=== PATIENT | female | born 1975 | race Caucasian/White ===

== ENCOUNTER 2016-12-24 20:03 | Emergency (ER) | payer SELFPAY ==
[2016-12-24] MEDS ORDERED: Ondansetron HCl/PF 4 MG/2 ML Vial ONE (20:45)
[2016-12-24 21:03] LABS: #Lymphocytes 1.1 thou/uL (1.20-3.40); #Monocytes 0.4 thou/uL (0.11-0.59); #Neutrophils 5.5 thou/uL (1.40-6.50); %Basophils 0.3 % (0.0-1.0); %Eosinophils 0.3 % (0.0-10.0); %Lymphocytes 15.7 % (21.0-51.0); %Monocytes 5.4 % (0.0-10.0); Hematocrit 38.1 % (36.0-47.0); Mean Platelet Volume 7.5 fL (7.4-10.4); Red Blood Cell (RBC) Count 3.81 mill/uL (4.20-5.40)
--- NOTE | 2016-12-24 21:12 | RAD ---
AP CHEST: Indication: Syncope. Comparison: 03-16-13 IMPRESSION: No acute cardiopulmonary abnormality. The examination does not appear appreciably changed from the c omparison dated 03-16-13. POS: [facility]
[2016-12-24 21:24] LABS: ALT (SGPT) 9 U/L (8-55); AST (SGOT) 14 U/L (5-34); Alkaline Phosphatase 76 U/L (40-150); Anion Gap 11 mmol/L (10-20); BUN (Urea Nitrogen) 12 mg/dL (7.0-18.7); Bilirubin, Total 0.2 mg/dL (0.2-1.2); CK (CPK) 79 U/L (29-168); Calc. Creatinine Clearance 0 mL/min (70-130); Calcium 8.7 mg/dL (7.8-10.44); Carbon Dioxide 27 mmol/L (22-29); Chloride 100 mmol/L (98-107); Estimated GFR-MDRD Greater than 90; Globulin 3.2 g/dL (2.4-3.5)
[2016-12-24 21:28] LABS: Troponin I Less than 0.010 ng/mL (< 0.028)
[2016-12-24 22:13] LABS: Bilirubin Negative (Negative); Blood, Urine Negative (Negative); Glucose, Urine (Dipstick) Negative (Negative); Ketone, Urine Negative (Negative); Nitrite Negative (Negative); Protein, Urine (Dipstick) Negative (Neg-Trace)
[2016-12-24 22:14] LABS: Bacteria/HPF None Seen HPF (None Seen); Hyaline Casts/LPF 0-3 HYALINE CAST LPF (0-3 Hyaline); RBC/HPF 0-3 HPF (0-3); Squamous Epithelial 0-3 HPF (0-3)
--- NOTE | 2016-12-24 22:32 | CT ---
CT BRAIN WITHOUT CONTRAST: Indication: 41-year-old male with history of seizures after smoking K2 today. The patient had an epi sode of shaking and was assisted to the ground and responsive to painful stimuli only. The patient d oes not recall the event. FINDINGS/IMPRESSION: No acute infarct, hemorrhage, or hydrocephalus is present. The septum pellucidum and third ventricle s are midline. The skull and extracranial soft tissues are normal appearing. POS: [facility]
--- NOTE | 2016-12-29 18:13 | EKG ---
Test Reason : Blood Pressure : / mmHG Vent. Rate : 072 BPM Atrial Rate : 072 BPM P-R Int : 160 ms QRS Dur : 084 ms QT Int : 418 ms P-R-T Axes : 061 053 037 degrees QTc Int : 457 ms Normal sinus rhythm Normal ECG Confirmed by CK BANERJEE M.D. ([id number]), videotape editor SAV WELLS ([id number] on 12/29/2016 6:13:22 PM Referred By: Confirmed By:CK BANERJEE M.D.
== END 2016-12-24 23:30 | disposition home or self-care (01) ==
LOC: ERS 20:03
DX: R55 Syncope and collapse (principal); F12.10 Cannabis abuse, uncomplicated; M32.9 Systemic lupus erythematosus, unspecified; I10 Essential (primary) hypertension; F31.9 Bipolar disorder, unspecified; F41.9 Anxiety disorder, unspecified; F17.210 Nicotine dependence, cigarettes, uncomplicated
CPT/HCPCS: 36415; 70450; 71010; 80053; 81003; 81015; 81025; 82553; 84484; 85025; 93005; 96361; 96374; J2405

== ENCOUNTER 2017-05-01 11:14 | Emergency (ER) | payer SELFPAY ==
[2017-05-01] MEDS ORDERED: ISOVUE-370 76%-LOCM 1 ML ONE (11:31)
[2017-05-01 11:58] LABS: Bilirubin Negative (Negative); Blood, Urine Negative (Negative); Clarity CLEAR (Clear); Glucose, Urine (Dipstick) Negative (Negative); Leukocyte Negative (Negative); Nitrite Negative (Negative); Protein, Urine (Dipstick) Negative (Neg-Trace); Specific Gravity, Urine 1.016 (1.002-1.036)
[2017-05-01] MEDS ORDERED: Morphine 2 MG/ML SYRINGE ONE (13:21)
[2017-05-01] MEDS ORDERED: Ondansetron HCl/PF 4 MG/2 ML Vial ONE (13:21)
[2017-05-01 13:30] LABS: #Lymphocytes 1.4 thou/uL (1.20-3.40); #Monocytes 0.4 thou/uL (0.11-0.59); #Neutrophils 4.7 thou/uL (1.40-6.50); %Basophils 0.2 % (0.0-1.0); %Eosinophils 0.2 % (0.0-10.0); %Lymphocytes 22.2 % (21.0-51.0); %Monocytes 5.7 % (0.0-10.0); %Neutrophils 71.8 % (42.0-75.0); Hemoglobin 15.4 g/dL (12.0-16.0); Mean Corpuscular HGB CONC 34.4 g/dL (32.0-36.0); Mean Corpuscular Hemoglobin 34.5 pg (27.0-31.0); Mean Platelet Volume 8.4 fL (7.4-10.4); Platelet Count 214 thou/uL (130-400); RBC Distribution Width 11.3 % (11.5-14.5); Red Blood Cell (RBC) Count 4.47 mill/uL (4.20-5.40); White Blood Cell (WBC) Count 6.5 thou/uL (4.8-10.8)
[2017-05-01 13:40] LABS: INR-International Normal Ratio 0.9; Prothrombin Time 12.7 SEC (12.0-14.7)
[2017-05-01 13:41] LABS: BHCG - Serum Negative (NEGATIVE); Pregs Control Background? CLEAR/WHITE (CLR/WHITE); Pregs Control Bar Appear? YES (CONTROL BAR)
[2017-05-01 13:56] LABS: ALT (SGPT) 9 U/L (8-55); AST (SGOT) 13 U/L (5-34); Albumin 4.4 g/dL (3.5-5.0); Alkaline Phosphatase 81 U/L (40-150); Anion Gap 12 mmol/L (10-20); BUN (Urea Nitrogen) 10 mg/dL (7.0-18.7); Bilirubin, Total 0.6 mg/dL (0.2-1.2); Calc. Creatinine Clearance 0 mL/min (70-130); Calcium 9.3 mg/dL (7.8-10.44); Carbon Dioxide 25 mmol/L (22-29); Chloride 102 mmol/L (98-107); Estimated GFR-MDRD 87; Globulin 3.2 g/dL (2.4-3.5); Glucose 109 mg/dL (70-105); Lipase 17 U/L (8-78); Potassium 3.8 mmol/L (3.5-5.1); Protein, Total 7.6 g/dL (6.0-8.3); Sodium 135 mmol/L (136-145)
--- NOTE | 2017-05-01 14:12 | RAD ---
ONE VIEW CHEST: HISTORY: Right-sided pain. Cough. Congestion. COMPARISON: 12/24/2016 FINDINGS: Portable upright chest demonstrates a normal cardiac silhouette. The pulmonary vessels and hilum are normal. No masses or consolidation. No pneumothorax or osseous abnormalities. IMPRESSION: No acute cardiopulmonary process. POS: [facility]
--- NOTE | 2017-05-01 14:30 | ULT ---
GALLBLADDER ULTRASOUND: HISTORY: Abdominal pain. Right upper quadrant pain. COMPARISON: None. TECHNIQUE: Utilizing a multihertz transducer, sonographic imaging of the right upper quadrant was performed in t he longitudinal and transverse plane. FINDINGS: The head and proximal pancreatic body have a normal echotexture. The remainder of the pancreas is ob scured by bowel gas. Pancreatic duct measures 0.3 cm. Visualized IVC and aorta are unremarkable. Hepatic parenchyma has a normal echotexture. No hepatic masses or intrahepatic biliary dilatation. Contour of the hepatic margin is maintained. Right hepat ic lobe measures 18.9 cm. Main portal vein is patent. Appropriate directional flow. Common bile duct diameter is 0.6 cm. No sonographic evidence of cholelithiasis, gallbladder wall thickening, or pericholecystic fluid. Ne gative Brown's sign. Right Kidney: No hydronephrosis. 4.5 x 5.0 x 10.6 cm. IMPRESSION: 1. No sonographic evidence of cholelithiasis or cholecystitis. Note, the patient is not NPO. 2. Common bile duct diameter at the upper limits of normal. If there is concern for choledocholithi asis, consider MRCP or ERCP. POS: [facility]
--- NOTE | 2017-05-01 15:40 | CT ---
CT ABDOMEN AND PELVIS WITH IV CONTRAST: HISTORY: Right-sided abdominal pain. FINDINGS: The lung bases are unremarkable. No free air or lymphadenopathy is seen. There is a small amount of free fluid in the pelvis. No calcified gallstones are identified. The liver, spleen, pancreas, adr enal glands, and kidneys are normal. The patient is post hysterectomy. An abnormally dilated fluid-filled appendix is not seen. There is no pericecal inflammatory change. There is a 17 mm cyst in the right adnexa. IMPRESSION: 1. A 17 mm right adnexal cyst, likely ovarian. 2. A small amount of free fluid in the pelvis. POS: [facility]
[2017-05-01 16:25] LABS: Amphetamine Not Detected (NotDetected); Barbiturates Screen Not Detected (NotDetected); Benzodiazepine Screen Not Detected (NotDetected); Cocaine Metabolite Screen Not Detected (NotDetected); Medtox Reader # READER 4; Methadone Not Detected (NotDetected); Methamphetamine Not Detected (NotDetected); Opiate Screen Not Detected (NotDetected); Oxycodone Screen Not Detected (NotDetected); Phencyclidine (PCP) Not Detected (NotDetected); THC/Cannabinoid Screen Detected (NotDetected); Tricyclic Screen Not Detected (NotDetected)
[2017-05-01 16:26] LABS: Medtox Control Line Valid? VALID (VALID)
[2017-05-01] MEDS ORDERED: Famotidine/PF 20 mg/2ml Vial ONE (16:46)
== END 2017-05-01 18:25 | disposition home or self-care (01) ==
LOC: ERS 11:14
DX: N83.201 Unspecified ovarian cyst, right side (principal); R10.11 Right upper quadrant pain; I10 Essential (primary) hypertension; F31.9 Bipolar disorder, unspecified; F41.9 Anxiety disorder, unspecified; F17.210 Nicotine dependence, cigarettes, uncomplicated; Z71.6 Tobacco abuse counseling
CPT/HCPCS: 36415; 71045; 74177; 76705; 80053; 80306; 81003; 83605; 83690; 84703; 85025; 85610; 96361; 96374; 96375; 99406; J1170; J2270; J2405; S0028

== ENCOUNTER 2017-08-05 17:59 | Emergency (ER) | payer SELFPAY ==
[2017-08-05 18:34] LABS: Bilirubin Negative (Negative); Blood, Urine Negative (Negative); Clarity CLEAR (Clear); Glucose, Urine (Dipstick) Negative (Negative); Leukocyte Negative (Negative); Nitrite Negative (Negative); Protein, Urine (Dipstick) Negative (Neg-Trace); Specific Gravity, Urine 1.023 (1.002-1.036); pH, Urine 5.5 (5.0-9.0)
[2017-08-05 18:52] LABS: Amphetamine Not Detected (NotDetected); Barbiturates Screen Not Detected (NotDetected); Benzodiazepine Screen Not Detected (NotDetected); Cocaine Metabolite Screen Not Detected (NotDetected); Medtox Control Line Valid? VALID (VALID); Medtox Reader # READER 1; Methadone Not Detected (NotDetected); Methamphetamine Not Detected (NotDetected); Opiate Screen Not Detected (NotDetected); Oxycodone Screen Not Detected (NotDetected); Phencyclidine (PCP) Not Detected (NotDetected); THC/Cannabinoid Screen Detected (NotDetected); Tricyclic Screen Not Detected (NotDetected)
[2017-08-05 18:55] LABS: #Lymphocytes 1.6 thou/uL (1.20-3.40); #Monocytes 0.4 thou/uL (0.11-0.59); #Neutrophils 4.2 thou/uL (1.40-6.50); %Basophils 0.2 % (0.0-1.0); %Eosinophils 0.1 % (0.0-10.0); %Lymphocytes 25.8 % (21.0-51.0); %Monocytes 6.7 % (0.0-10.0); %Neutrophils 67.1 % (42.0-75.0); Hemoglobin 13.5 g/dL (12.0-16.0); Mean Corpuscular HGB CONC 35.6 g/dL (32.0-36.0); Mean Corpuscular Hemoglobin 34.3 pg (27.0-31.0); Mean Corpuscular Volume 96.4 fl (81.0-99.0); Platelet Count 184 thou/uL (130-400); RBC Distribution Width 10.7 % (11.5-14.5); Red Blood Cell (RBC) Count 3.94 mill/uL (4.20-5.40); White Blood Cell (WBC) Count 6.2 thou/uL (4.8-10.8)
[2017-08-05 19:05] LABS: PTT 31.6 SEC (22.9-36.1); Prothrombin Time 13.4 SEC (12.0-14.7)
[2017-08-05 19:14] LABS: ALT (SGPT) 8 U/L (8-55); AST (SGOT) 13 U/L (5-34); Alkaline Phosphatase 68 U/L (40-150); Anion Gap 12 mmol/L (10-20); BUN (Urea Nitrogen) 16 mg/dL (7.0-18.7); Bilirubin, Total 0.5 mg/dL (0.2-1.2); Calc. Creatinine Clearance 0 mL/min (70-130); Carbon Dioxide 26 mmol/L (22-29); Chloride 104 mmol/L (98-107); Estimated GFR-MDRD 81; Globulin 2.6 g/dL (2.4-3.5); Glucose 120 mg/dL (70-105); Potassium 3.6 mmol/L (3.5-5.1); Protein, Total 6.6 g/dL (6.0-8.3); Sodium 138 mmol/L (136-145)
== END 2017-08-05 20:06 | disposition home or self-care (01) ==
LOC: ERS 17:59
DX: R55 Syncope and collapse (principal); I10 Essential (primary) hypertension; F41.9 Anxiety disorder, unspecified; F31.9 Bipolar disorder, unspecified; F17.210 Nicotine dependence, cigarettes, uncomplicated; Z79.899 Other long term (current) drug therapy
CPT/HCPCS: 36415; 51701; 80053; 80306; 81003; 84146; 85025; 85610; 85730; 93005; A4353

== ENCOUNTER 2018-04-20 12:44 | Emergency (ER) | payer SELFPAY ==
[2018-04-20] MEDS ORDERED: Ketorolac Tromethamine 30 MG/ML VIAL ONE (13:51)
--- NOTE | 2018-04-20 15:27 | RAD ---
TWO VIEWS LEFT FOREARM: DATE: 04/20/2018. COMPARISON: None. HISTORY: Injury, trauma, fall, pain. FINDINGS: No displaced fracture or evidence of dislocation. IMPRESSION: No acute osseous abnormality. POS: [facility]
--- NOTE | 2018-04-20 15:28 | RAD ---
LEFT HAND 3 VIEWS: DATE: 04/20/2018. COMPARISON: None. HISTORY: Left-sided pain, fall, injury. FINDINGS: There is probable mild dorsal soft tissue swelling with no displaced fracture or evidence of dislocat ion. IMPRESSION: No acute fracture or evidence of dislocation. POS: [facility]
== END 2018-04-20 14:10 | disposition home or self-care (01) ==
LOC: ERS 12:44
DX: M25.532 Pain in left wrist (principal); F31.9 Bipolar disorder, unspecified; F41.9 Anxiety disorder, unspecified; F17.210 Nicotine dependence, cigarettes, uncomplicated; I10 Essential (primary) hypertension; M32.9 Systemic lupus erythematosus, unspecified; Z79.899 Other long term (current) drug therapy
CPT/HCPCS: 96372; J1885

== ENCOUNTER 2018-06-25 15:04 | Emergency (ER) | payer SELFPAY ==
--- NOTE | 2018-06-25 16:14 | RAD ---
RIGHT SHOULDER THREE VIEWS: 06/25/18 HISTORY: Right shoulder pain. FINDINGS/IMPRESSION: No fracture or dislocation or bony destruction is identified. POS: [facility]
[2018-06-25] MEDS ORDERED: traMADol HCl 50 MG TAB ONE (17:15)
== END 2018-06-25 17:21 | disposition home or self-care (01) ==
LOC: ERS 15:04
DX: M25.511 Pain in right shoulder (principal); M06.9 Rheumatoid arthritis, unspecified; F17.210 Nicotine dependence, cigarettes, uncomplicated; I10 Essential (primary) hypertension; F41.9 Anxiety disorder, unspecified; F31.9 Bipolar disorder, unspecified; Z79.899 Other long term (current) drug therapy; X50.1XXA Overexertion from prolonged static or awkward postures, initial encounter